=== PATIENT | male | born 1995 ===

== ENCOUNTER 2021-10-13 02:47 | Emergency (ER) | payer OTHER ==
[~2021-10-13] VITALS: Ht 195.6 cm; Wt 97.5 kg
[2021-10-13] MEDS ORDERED: KETO10TA2 PO (05:52)
== END 2021-10-13 06:03 | disposition home or self-care (01) ==
LOC: ER 02:47
DX: S99.921A Unspecified injury of right foot, initial encounter (principal); W22.01XA Walked into wall, initial encounter; Y93.9 Activity, unspecified; Y92.019 Unspecified place in single-family (private) house as the place of occurrence of the external cause